=== PATIENT | female | born 1970 | race Caucasian/White ===

== ENCOUNTER 2016-09-19 18:19 | Emergency (ER) | payer SELFPAY ==
--- NOTE | ~2016-09-19 | ER ---
PATIENT'S NAME: CHRISTY KERR AGE: 46 Y [address] ROOM: [place] [address] LOCATION: [facility] ADMIT DATE: 09/19/2016 ER/Outpatient Report DISCHARGE DATE: 09/19/2016 FAMILY PHYSICIAN: PHYSICIAN, CELESTE ATTENDING PHYSICIAN: Tess Rosado Time of Patient's Arrival: 1819 hours. Time of Patient's Evaluation: 1830 hours. CHIEF COMPLAINT: Dog bite to bilateral hands. HISTORY OF PRESENT ILLNESS: This is a 46-year-old female who presents to the ER. She states she was bit by her dog 45 minutes prior to arrival. The patient states that they were here in [place]. Her dog jumped out of their car and ran out to the street ended up getting hit by a vehicle, and started coming back over to them. Her son ended up picking up the dog and it bit her child because it was hurt, so she tried to get the dog away from her son and the dog ended up biting her hands as well. She states that she is up to date on her immunizations. They state the dog is up to date on his immunizations and they currently took the dog [facility] to [facility]. The patient denies any other injury at this time. ALLERGIES: NO KNOWN ALLERGIES. MEDICATIONS: None. PAST MEDICAL HISTORY: Negative. PAST SURGERIES: C-sections and a gastric bypass. SOCIAL HISTORY: Smokes half pack a day for last 6 years. Drinks alcohol occasionally. REVIEW OF SYSTEMS: A 10-point review of systems was completed and was negative with the exception of those discussed in the HPI. PHYSICAL EXAMINATION: VITAL SIGNS: Height 5 feet 2 inches stated, weight 101.9 kg taken, pulse 89, PATIENT'S NAME: CHRISTY KERR AGE: 46 Y [address] ROOM: [place] [address] LOCATION: [facility] ADMIT DATE: 09/19/2016 ER/Outpatient Report DISCHARGE DATE: 09/19/2016 FAMILY PHYSICIAN: PHYSICIAN, CELESTE ATTENDING PHYSICIAN: Tess Rosado respirations 16, temperature is 98.2 degrees tympanically, and saturations 97% on room air. Stem Coma Score is 15. GENERAL: Alert, anxious female, in mild distress. EXTREMITIES: No clubbing or cyanosis. She does have multiple puncture wounds to bilateral hands, both on the volar and dorsal aspects of both of her hands. She does have an area of ecchymosis and swelling noted to the proximal portion of her metacarpals on her hand. She has full range of motion for hand. I cannot elicit any pain over any of the bony aspects of her bilateral hands. Please see the anatomical chart in nurse's notes for location of all the puncture sites. LABORATORY DATA: None were done. X-RAYS: X-rays of the right hand showed no obvious fracture. This will be over read by Radiology. IMPRESSION: Multiple puncture sites and contusion from dog bite to bilateral hands. ASSESSMENT AND PLAN: I did give the patient reassurance. We did cleanse each puncture site with normal saline and dressed with antibiotic ointment and bandage. We did update her on her tetanus shot as well. We will send her home with a wound care handout. She needs to keep her wounds clean and covered. Use antibiotic ointment, Tylenol or ibuprofen as needed for pain, and follow up with primary care physician as needed. The patient understands and agrees with care. JOHN GASCA PA-C FOR MD NESSA TORRE/lois /[id number] P d: 09/20/16 0139 t: 09/20/16 1816, OUTPATIENT REPORT
== END 2016-09-19 19:20 | disposition disaster alternative care site (69) ==
LOC: GACC 18:19
DX: S61.451A Open bite of right hand, initial encounter (principal); S61.452A Open bite of left hand, initial encounter; F17.210 Nicotine dependence, cigarettes, uncomplicated; Z23 Encounter for immunization; W54.0XXA Bitten by dog, initial encounter; Y92.410 Unspecified street and highway as the place of occurrence of the external cause